=== PATIENT | male | born 1950 | race Caucasian/White ===

== ENCOUNTER 2023-08-18 08:30 | Emergency (ER) | payer MEDICARE, OTHER ==
[~2023-08-18] VITALS: Ht 160 cm; Wt 84.1 kg
[2023-08-18 08:38] VITALS: TEMP 98.8
[2023-08-18] MEDS ORDERED: Ondansetron 4 MG/2 ML VIAL IV ONE (09:00)
[2023-08-18] MEDS ORDERED: Morphine 4 MG/ML VIAL IV PRN (09:00)
[2023-08-18] MEDS ORDERED: NS 1,000 ML IV ONE (09:00)
[2023-08-18 09:18] LABS: BASO # 0.1 K/mm3 (0.0-0.2); BASO % 0.8 % (0.0-2.0); EOS # 0.2 K/mm3 (0.0-0.7); EOS % 2.4 % (0.0-4.0); GRAN # 5.7 K/mm3 (1.4-6.5); GRAN % 71.8 % (42.2-75.2); HEMATOCRIT 42.6 % (42.0-52.0); HEMOGLOBIN 14.1 g/dl (13.5-18.0); LYMPH # 1.4 K/mm3 (1.2-3.4); LYMPH % 17.5 % (20.0-51.0); MEAN CELL VOLUME 86 fl (80.0-100.0); MEAN CORPUSCULAR HEMOGLOBIN 29 pg (27-31); MEAN CORPUSCULAR HGB CONC 33 g/dl (33.0-37.0); MEAN PLATELET VOLUME 9.6 fl (7.4-10.4); MONO # 0.6 K/mm3 (0.1-0.6); MONO % 7.2 % (1.7-9.3); PLATELET COUNT 173 K/mm3 (130-400); RED BLOOD COUNT 4.95 M/mm3 (4.20-5.60); REDCELL DISTRIBUTION WIDTH-CV 13.3 % (11.5-14.5)
[2023-08-18 09:34] LABS: ALBUMIN 3.9 gm/dL (3.4-4.8); BILIRUBIN,TOTAL 1.5 mg/dL (0.2-1.2); CALCIUM 9.5 mg/dL (8.4-10.2); CREATININE, serum 1.14 mg/dL (0.72-1.25); POTASSIUM 4.5 mmol/L (3.5-4.5); TOTAL PROTEIN 6.6 gm/dL (6.2-8.1)
[2023-08-18] MEDS ORDERED: NS 100 ML IV SCH (09:44)
[2023-08-18] MEDS ORDERED: Iohexol 300 - 100 ML VIAL IV ONE (09:44)
[2023-08-18] MEDS ORDERED: FLOMAX 0.40.4 MG/CAP PO (10:29)
[2023-08-18] MEDS ORDERED: ZOFRAN ODT4 MG PO (10:29)
[2023-08-18] MEDS ORDERED: PERCOCET 325 MG1 TA2 PO (10:29)
[2023-08-18 10:38] VITALS: BP 156/96; PULSE 51
== END 2023-08-18 10:39 | disposition home or self-care (01) ==
LOC: COL.ER 08:30
PROVIDERS: Personal Emergency Response Attendant
DX: N13.2 Hydronephrosis with renal and ureteral calculous obstruction (principal)
CPT/HCPCS: J2270; J2405; J7030; Q9967